=== PATIENT | male | born 1965 | race Caucasian/White ===

== ENCOUNTER 2017-09-17 12:58 | Outpatient (CLI) | payer OTHER ==
--- NOTE | 2017-09-17 15:06 | CT ---
CT BRAIN WITHOUT CONTRAST: Date: 09/17/17 HISTORY: Headache associated with sexual activity. FINDINGS: No evidence of infarct, hemorrhage, midline shift, or abnormal extra-axial fluid collections are seen . The ventricular size is normal and the basilar cisterns are patent. The bony calvarium is intact. T he visualized paranasal sinuses and mastoid air cells are well aerated. IMPRESSION: No CT evidence of acute intracranial process. POS: [facility]
== END 2017-09-17 12:59 | disposition home or self-care (01) ==
LOC: SCSCT 12:58
PROVIDERS: ATTEND Family Medicine
DX: G44.82 Headache associated with sexual activity (principal)
CPT/HCPCS: 70450

== ENCOUNTER 2018-03-10 08:44 | Outpatient (CLI) | payer OTHER ==
--- NOTE | 2018-03-10 09:46 | RAD ---
BARIUM SWALLOW: History: Dysphasia. FINDINGS: The patient ingested barium and crystals without difficulty. The esophageal mucosa and motility were normal. On some of the images there is suggestion of some slight narrowing to the distal esophagus at the GE junction. However, a barium tablet passed without difficulty. No hiatal hernia or reflux. IMPRESSION: Unremarkable barium swallow. Suggestion of some slight narrowing at the GE junction but a barium tabl et passed through this area without difficulty. POS: [facility]
== END 2018-03-10 08:45 | disposition home or self-care (01) ==
LOC: RAD 08:44
PROVIDERS: ATTEND Family Medicine
DX: R13.10 Dysphagia, unspecified (principal)
CPT/HCPCS: 74220

== ENCOUNTER 2018-04-20 13:40 | Outpatient (CLI) | payer OTHER ==
[~2018-04-20 13:40] MED LIST: Iopamidol 370 76% 100 ML VIAL ONE
--- NOTE | 2018-04-20 16:22 | CT ---
CT CHEST WITH CONTRAST 04/20/18 Multiple axial tomograms obtained through the chest with IV enhancement. INDICATIONS: Dysphagia. FINDINGS: The lung albarran are clear and well aerated. The mediastinum is unremarkable. No adenopathy. Esophagus appears unremarkable by CT. Images through upper abdomen appear unremarkable. IMPRESSION: Unremarkable CT chest. POS: [facility]
== END 2018-04-20 13:41 | disposition home or self-care (01) ==
LOC: SCSCT 13:40
PROVIDERS: ATTEND Internal Medicine Gastroenterology
DX: R13.10 Dysphagia, unspecified (principal); K22.2 Esophageal obstruction
CPT/HCPCS: 71260

== ENCOUNTER 2018-05-04 10:17 | Inpatient (IN) | payer OTHER ==
[2018-05-04 10:45] LABS: #Basophils 0.1 thou/uL (0.0-0.2); #Eosinphils 0.2 thou/uL (0.0-0.7); #Lymphocytes 2.2 thou/uL (1.20-3.40); #Monocytes 0.4 thou/uL (0.11-0.59); #Neutrophils 3.2 thou/uL (1.40-6.50); %Basophils 0.8 % (0.0-1.0); %Eosinophils 3.4 % (0.0-10.0); %Lymphocytes 36.2 % (21.0-51.0); %Monocytes 7.2 % (0.0-10.0); %Neutrophils 52.4 % (42.0-75.0); Hemoglobin 15.3 g/dL (14.0-18.0); Mean Corpuscular HGB CONC 34.1 g/dL (32.0-36.0); Mean Corpuscular Hemoglobin 31.7 pg (27.0-31.0); Mean Corpuscular Volume 92.9 fL (78.0-98.0); Mean Platelet Volume 7.5 fL (7.4-10.4); Platelet Count 152 thou/uL (130-400); RBC Distribution Width 12.1 % (11.5-14.5); Red Blood Cell (RBC) Count 4.84 mill/uL (4.70-6.10)
[2018-05-04 11:09] LABS: ALT (SGPT) 37 U/L (8-55); AST (SGOT) 31 U/L (5-34); Albumin 4.7 g/dL (3.5-5.0); Alkaline Phosphatase 72 U/L (40-150); Anion Gap 15 mmol/L (10-20); BUN (Urea Nitrogen) 17 mg/dL (8.4-25.7); Bilirubin, Total 0.9 mg/dL (0.2-1.2); CK (CPK) 163 U/L (30-200); Calc. Creatinine Clearance 0 mL/min (70-130); Calcium 9.8 mg/dL (7.8-10.44); Carbon Dioxide 26 mmol/L (22-29); Chloride 103 mmol/L (98-107); Estimated GFR-MDRD 74; Globulin 2.6 g/dL (2.4-3.5); Glucose 132 mg/dL (70-105); Lipase 56 U/L (8-78); Potassium 3.8 mmol/L (3.5-5.1); Protein, Total 7.3 g/dL (6.0-8.3); Sodium 140 mmol/L (136-145)
[2018-05-04 11:13] LABS: Troponin I Less than 0.010 ng/mL (< 0.028)
--- NOTE | 2018-05-04 12:00 | RAD ---
UPRIGHT PORTABLE CHEST 1 VIEW: Date: 05/04/18 HISTORY: 53-year-old male with history of chest pain, with heaviness and tightness, and left arm pain. FINDINGS: Heart size is normal. The lungs are clear. No pneumonia, edema, pleural effusion, or other acute proc ess. IMPRESSION: No acute intrathoracic disease. POS: [facility]
--- NOTE | 2018-05-04 12:22 | CT ---
CT BRAIN: Date: 05/04/18 HISTORY: Patient with headache. Previous episode of head trauma in February 2018. FINDINGS: Noncontrast enhanced CT images of the brain obtained. Images demonstrate a right frontal subdural hem atoma with mixed acute and chronic changes. No evidence of subdural seen on patient's previous old CT . This subdural hematoma appears to compress the right frontal lobe causing midline shift of approxim ately 7.6 mm. No evidence of hydrocephalus seen. IMPRESSION: Moderate to large right frontal subdural hematoma with compression of the adjacent brain and midline shift. Findings discussed with Dr. Kay at 1134 hours on 05/04/18. CODE CR. POS: [facility]
[2018-05-04] MEDS ORDERED: Labetalol HCl 100 MG/20 ML VIAL SLOW IVP PRN (12:23)
[2018-05-04] MEDS ORDERED: Ondansetron PF 4 MG/2 ML Vial IVP PRN (12:23)
[2018-05-04] MEDS ORDERED: Milk Of Magnesia 30 ML UDCUP PO PRN (12:23)
[2018-05-04] MEDS ORDERED: hydrALAZINE 20 MG/ML VIAL SLOW IVP PRN (12:23)
[2018-05-04] MEDS ORDERED: Docusate 100 MG CAP PO PRN (12:23)
[2018-05-04 12:26] LABS: PTT 29.4 SEC (22.9-36.1)
[2018-05-04 15:30] VITALS: BMI 30.5
[2018-05-04] MEDS: Sodium Chloride 0.9% 1,000 ML IV SCH (16:23)
[2018-05-04] MEDS: Simvastatin 20 MG TAB PO SCH (21:18)
[2018-05-04] MEDS: Famotidine/PF 20 mg/2ml Vial SLOW IVP SCH (21:18)
--- NOTE | 2018-05-04 21:37 | HP ---
HISTORY OF PRESENT ILLNESS: Mr. Carmona is a 53-year-old man who presented to the emergency [facility] this morning at [place] for acute onset of left polydermatomal arm numbness that resolved spont aneously while in the department. He had a CT scan performed of his head that revealed a large right -sided subdural hematoma, subacute in nature that was compressive to the right frontal lobe. It tu ures roughly 1.4 cm in greatest depth and also causes 7-8 mm of midline shift. Neurologically, he is in his baseline and does have mild headache. He describes to me a fall 2 months ago at home where toney bowman had a syncopal event and struck his head posteriorly. CT scan performed immediately at that event was negative at that time, but then over the last 3-4 weeks, he started to develop increasing headach es that are abnormal for him. He does have a history of migraines. This is not similar to those in any of the event today where his left arm went numb. This is very likely related to the subdural ble ed. PAST MEDICAL HISTORY: Significant for hypertension and migraines. MEDICATIONS: Ezetimibe and fexofenadine. ALLERGIES: No known drug allergies. PAST SURGICAL HISTORY: Unspecified. PHYSICAL EXAMINATION: GENERAL: The patient is alert and oriented x4. STRENGTH: He has normal upper and bilateral lower extremity strength. SENSORY: Pupils are equal, round, and reactive to light. Extraocular movements are intact. Cervica l range of motion is intact. NECK: Soft and supple. ASSESSMENT: Subdural hematoma. PLAN: At this time, we will admit her to the stroke unit with q.4 hour neuro checks. We will keep h ead of bed elevated to 30 degrees. I discussed with him and his at bedside recommendation of putnam rgical decompression and evacuation of this hemorrhage or hematoma. Explained in full the procedure, risks, benefits, and alternatives. The patient and his both expressed understanding and would like to proceed. We will plan to make him n.p.o. at midnight and evacuate this tomorrow.
[2018-05-05 04:49] LABS: #Basophils 0.1 thou/uL (0.0-0.2); #Eosinphils 0.3 thou/uL (0.0-0.7); #Lymphocytes 1.7 thou/uL (1.20-3.40); #Monocytes 0.5 thou/uL (0.11-0.59); #Neutrophils 3.9 thou/uL (1.40-6.50); %Basophils 0.9 % (0.0-1.0); %Lymphocytes 26.4 % (21.0-51.0); %Monocytes 7.4 % (0.0-10.0); %Neutrophils 61.3 % (42.0-75.0); Hemoglobin 13.5 g/dL (14.0-18.0); Mean Corpuscular HGB CONC 33.4 g/dL (32.0-36.0); Mean Corpuscular Hemoglobin 31.5 pg (27.0-31.0); Mean Corpuscular Volume 94.2 fL (78.0-98.0); Mean Platelet Volume 7.2 fL (7.4-10.4); Platelet Count 141 thou/uL (130-400); RBC Distribution Width 12.1 % (11.5-14.5); White Blood Cell (WBC) Count 6.4 thou/uL (4.8-10.8)
[2018-05-05 05:13] LABS: Anion Gap 9 mmol/L (10-20); BUN (Urea Nitrogen) 15 mg/dL (8.4-25.7); Calc. Creatinine Clearance 130 mL/min (70-130); Calcium 8.8 mg/dL (7.8-10.44); Carbon Dioxide 27 mmol/L (22-29); Chloride 105 mmol/L (98-107); Estimated GFR-MDRD 84; Glucose 113 mg/dL (70-105); Potassium 3.9 mmol/L (3.5-5.1); Sodium 137 mmol/L (136-145)
[2018-05-05] MEDS ORDERED: Lidocaine 0.5%/Epinephrine 1:200,000 50 ml Vial ONE (07:57)
[2018-05-05] MEDS ORDERED: CEFAZOLIN/Water 2 GM/20 ML SYRINGE ONE (08:02)
[2018-05-05] MEDS ORDERED: Fentanyl 100 MCG/2 ML VIAL ONE ×2 (08:48→10:08)
[2018-05-05] MEDS ORDERED: Bacitracin Zinc Ointment 30 gm TUBE ONE (09:35)
[2018-05-05] MEDS ORDERED: Ondansetron HCl/PF 4 MG/2 ML Vial IVP PRN (09:56)
[2018-05-05] MEDS ORDERED: HYDROmorphone 2 MG/ML VIAL SLOW IVP PRN (09:56)
[2018-05-05] MEDS ORDERED: Promethazine HCl 25 MG/ML VIAL SLOW IVP PRN (09:56)
[2018-05-05] MEDS ORDERED: Promethazine HCl 25 MG/ML VIAL IM PRN (09:56)
--- NOTE | 2018-05-05 11:07 | OP ---
DATE OF PROCEDURE: 05/04/2018 SURGEON: Last Quezada M.D. ADMINISTRATIVE SERVICES COORDINATOR: Ari Morales PA-C. INDICATION: Prevent neurologic decline. DIAGNOSIS: Subacute on chronic subdural hematoma. PROCEDURE PERFORMED: Right frontal betzy hole with evacuation of hematoma. ANESTHESIA: General. TECHNIQUE: The patient was brought into the operating room and placed under general anesthesia. He was placed on the table in supine position. A linear incision was placed over the right frontal bone . The area was infiltrated with Marcaine with epinephrine. The area was then prepped and draped. F ollowing an appropriate operative pause, the incision was created. A self-retaining retractor was pl aced. A single betzy hole was placed within the bone. A cruciate incision was then placed within the dura. There was immediate egress of subacute and chronic blood products. This was irrigated away u ntil it cleared. A red rubber tube was then placed in the subdural space and brought out through a s eparate puncture site. A small betzy hole plate was placed over the betzy hole. The wound was again i rrigated. Hemostasis was maintained throughout. The wound was then closed in anatomic layers and a pressure dressing was applied. There were no known procedural complications.
[2018-05-05] MEDS ORDERED: Ketorolac Tromethamine 30 MG/ML VIAL ONE (13:44)
[2018-05-05] MEDS ORDERED: Ondansetron PF 4 MG/2 ML Vial ONE (13:44)
[2018-05-05] MEDS ORDERED: PROPOFOL 200 MG/20 ML VIAL ONE (13:44)
[2018-05-05] MEDS ORDERED: Glycopyrrolate 0.2 MG/ML 5 ML SYRINGE ONE (13:44)
[2018-05-05] MEDS ORDERED: Lidocaine 1% PF 5 ML VIAL ONE (13:44)
[2018-05-05] MEDS ORDERED: Dexamethasone 20 MG/5 ML VIAL ONE (13:44)
[2018-05-05] MEDS ORDERED: ePHEDrine/0.9% NaCl/PF SYRINGE 50 mg/10 ml ONE (13:44)
[2018-05-05] MEDS: Famotidine/PF 20 mg/2ml Vial SLOW IVP SCH ×2 (14:27→20:07)
[2018-05-05] MEDS: Loratadine 10 MG TAB PO SCH (14:27)
[2018-05-05] MEDS: Sodium Chloride 0.9% 1,000 ML IV SCH (14:28)
[2018-05-05] MEDS: CEFAZOLIN/Water 2 GM/20 ML SYRINGE SLOW IVP SCH (15:02)
--- NOTE | 2018-05-05 17:44 | CON ---
DATE OF CONSULTATION: 05/05/2018 SERVICE: Pulmonary Medicine. REASON FOR CONSULTATION: ICU patient. HISTORY OF PRESENT ILLNESS: The patient is a 53-year-old white male with past medical history significant for essentially nothing. He was in his usual state of health until 2 months ago when he fell. He got checked out in the ER and everything was okay. That being said, about 2-3 weeks later, he started having onset of headaches. These grew and became progressively worse. They were typically first thing in the morning and mid afternoon. He was taking aspirin for these headaches. Ultimately, he started having some weird neurologic symptoms. As such, he presented to the Emergency Department, where CT scan confirmed his subdural hematoma. This has just been evacuated and he is being monitored in the ICU. The neurologic discomfort has completely resolved. He currently has a headache, but this is different than the thing that brought him in. PAST MEDICAL HISTORY: 1. Hypertension. 2. Migraine headache. 3. Obstructive sleep apnea. 4. History of subdural hematoma. PAST SURGICAL HISTORY: 1. [place] hole in the right frontal area with evacuation of subdural hematoma. 2. UPPP. 3. Nasal surgeries. ALLERGIES: No known drug allergies. MEDICATIONS: List of his inpatient medications were reviewed. No specific updates were made at this time. FAMILY HISTORY: Noncontributory. SOCIAL HISTORY: Negative for significant alcohol, tobacco, or illicit drug use. He has no exposure to chemicals, asbestos, or tuberculosis. REVIEW OF SYSTEMS: General, head, ears, eyes, nose, throat, cardiovascular, respiratory, GI, , musculoskeletal, neurologic, and skin is negative except as mentioned in the HPI. PHYSICAL EXAMINATION: VITAL SIGNS: Afebrile, pulse 86, blood pressure 121/61, respirations 13, saturation 100% on room air. GENERAL: The patient is awake, alert, in no apparent distress. LUNGS: There is excellent air entry. No prolonged expiratory phase, wheezing, rhonchi, or crackles are present. HEENT: Normocephalic, atraumatic. Sclerae are white. Conjunctivae pink. Oral and nasal mucosa is moist and without lesions. His head is wrapped in gauze. There is a catheter coming from beneath the gauze. It has a serosanguineous fluid in it. HEART: Normal rate, regular. ABDOMEN: Soft, nontender, nondistended. Bowel sounds are positive. MUSCULOSKELETAL: No cyanosis or clubbing. No pitting in the bilateral lower extremities. NEUROLOGIC: Grossly nonfocal. LABORATORY DATA: WBC 6.4, hemoglobin 13.5, platelets 141,000. INR 1.0. Basic metabolic profile and liver function studies are essentially unremarkable. Cardiac enzymes negative x1. IMAGIN. CT of the brain demonstrates right frontal subdural hematoma with compression adjacent to brain and midline shift that measures 8 mm. 2. Chest x-ray demonstrates no acute intrathoracic disease. ASSESSMENT: 1. Subdural hematoma, status post evacuation, postop day 0. 2. Hypertension. 3. Obstructive sleep apnea. DISCUSSION AND PLAN: The patient is doing absolutely wonderful from a neurologic standpoint. He is going to remain in the ICU until the drain is removed. We will do frequent neuro checks on him to make certain he does not decompensate. If he does, stat CT of the head will be done and Neurosurgery will be notified. We will try to keep his blood pressure under control and avoid antiplatelet medications, as well as anticoagulants. CPAP will be interrupted for the time being. 70 minutes have been devoted to this patient in various activities. I personally reviewed all imaging studies and laboratory data noted within this document. For fifty percent of this time, I was interacting with the patient at the bedside or coordinating care with the care team. For the remainder of the time I was immediately available to the patient in the hospital unit. [facility]
[2018-05-05] MEDS: Simvastatin 20 MG TAB PO SCH (20:07)
[2018-05-05] MEDS: Ezetimibe 10 MG TAB PO SCH (20:07)
[2018-05-05] MEDS: Acetaminophen 325 MG TAB PO PRN (20:10)
[2018-05-06] MEDS: CEFAZOLIN/Water 2 GM/20 ML SYRINGE SLOW IVP SCH ×2 (00:58→09:02)
[2018-05-06] MEDS: Famotidine/PF 20 mg/2ml Vial SLOW IVP SCH ×2 (08:47→20:26)
[2018-05-06] MEDS: Loratadine 10 MG TAB PO SCH (08:47)
[2018-05-06] MEDS: Sodium Chloride 0.9% 1,000 ML IV SCH (08:48)
[2018-05-06] MEDS: CEFAZOLIN 2 GM/50 ML-DEXTROSE 50 ML IVPB SCH ×3 (09:01→23:56)
--- NOTE | 2018-05-06 14:26 | PRG ---
DATE OF SERVICE: 05/06/2018 SERVICE: Pulmonary Medicine. INTERVAL HISTORY: The patient is doing well from a mentation standpoint. The pain in his head has i mproved significantly. This is primarily because he had the drain removed today. He denies any curr ent chest pain, nausea, vomiting, fevers or chills. Otherwise, there has been no interval change to his condition. He had no significant overnight events. PHYSICAL EXAMINATION: VITAL SIGNS: Afebrile, pulse 68, blood pressure 135/87, respirations 20, saturation 98% on room air. GENERAL: The patient is awake, alert, in no apparent distress. LUNGS: Excellent air entry. No prolonged expiratory phase, wheezing, rhonchi or crackles. HEART: Normal rate, regular. ABDOMEN: Soft, nontender, nondistended. Bowel sounds are positive. MUSCULOSKELETAL: No cyanosis or clubbing. There is no pitting in the bilateral lower extremities. NEUROLOGIC: Grossly nonfocal. ASSESSMENT: 1. Subdural hematoma, status post evacuation, postoperative day 1. 2. Hypertension. 3. Obstructive sleep apnea. DISCUSSION AND PLAN: The patient is doing fine from a respiratory standpoint. At this point, he is stable for transition out of the ICU to the stroke unit. If the patient remains in this location, I will follow, but at this point, he has no further requirements for inpatient Pulmonary or Critical Ca re opinion and when he lands on the floor, I will sign off. Please call with additional questions or concerns moving forward.
[2018-05-06] MEDS: Ezetimibe 10 MG TAB PO SCH (20:26)
[2018-05-06] MEDS: Simvastatin 20 MG TAB PO SCH (20:26)
--- NOTE | 2018-05-06 22:55 | PRG ---
DATE OF SERVICE: 05/06/2018 TIME OF ENCOUNTER: This morning at . Mr. Carmona is day #1 status post right subdural hematoma evacuation. He has had minimal drainage to theJP drain from his betzy hole site, we will remove the drain today. Neurologically, he is stable un til yesterday, but his pains and numb sensation of the left shoulder and arm, have essentially resol radha. His headache is gone as well. He feels very well. He is yet to be we will change that n ow today, transitioned to the floor and likely discharge tomorrow.
[2018-05-07] MEDS: Acetaminophen 325 MG TAB PO PRN (06:00)
[2018-05-07 07:21] VITALS: BP 124/85; TEMP 97.6
[2018-05-07] MEDS: Famotidine/PF 20 mg/2ml Vial SLOW IVP SCH (08:29)
[2018-05-07] MEDS: Loratadine 10 MG TAB PO SCH (08:29)
[2018-05-07] MEDS: CEFAZOLIN 2 GM/50 ML-DEXTROSE 50 ML IVPB SCH (08:30)
--- NOTE | 2018-05-07 08:43 | PRG ---
DATE OF SERVICE: 05/07/2018 Mr. Carmona is now 2 days status post betzy hole drainage of a subdural hematoma. Neurologically, he i s at baseline. He reports minimal to no pain. He has been ambulating and tolerating an oral diet. The plan will be to discharge him home today with follow up in 2 weeks.
--- NOTE | 2018-05-07 16:06 | DIS ---
DATE OF ADMISSION: 05/04/2018 DATE OF DISCHARGE: 05/07/2018 Mr. Carmona is a 53-year-old male admitted to [facility] on 05/04/2018 with subsequent discha rge on 05/07/2018. ADMISSION DIAGNOSIS: Fall with subdural hematoma. DISCHARGE DIAGNOSES: Fall with subdural hematoma as well as status post subdural hematoma evacuation betzy hole. HOSPITAL COURSE: Mr. Carmona was admitted for right-sided compressive subdural hematoma of subacute o n chronic nature causing left-sided arm symptoms and headache. This was evacuated by betzy hole drain age on 05/06. He stayed one night in the ICU and then the day on the floor and tolerated this well w ith no complication. He was discharged home with anticipated followup in 2 weeks.
--- NOTE | 2018-05-08 12:16 | EKG ---
Test Reason : CP Blood Pressure : / mmHG Vent. Rate : 059 BPM Atrial Rate : 059 BPM P-R Int : 130 ms QRS Dur : 092 ms QT Int : 444 ms P-R-T Axes : 065 043 022 degrees QTc Int : 439 ms Sinus bradycardia Nonspecific ST abnormality Abnormal ECG Confirmed by MAHAD CRAWFORD ([id number]), index editor LUPE WHITT ([id number] on 05/08/2018 12:16:31 PM Referred By: Confirmed By:MAHAD CRAWFORD
== END 2018-05-07 10:45 | disposition home or self-care (01) | DRG 27 ==
LOC: ERS 10:17 → ERHOLD 12:09 → 2SE 15:06 → CCU 05-05 09:55 → SJJU 05-06 16:30
PROVIDERS: ADMIT Neurological Surgery; ATTEND Neurological Surgery
PROC: 009400Z Drainage of Intracranial Subdural Space with Drainage Device, Open Approach (ICD-10-PCS; principal; 2018-05-04)
DX: S06.5X9A Traumatic subdural hemorrhage with loss of consciousness of unspecified duration, initial encounter (principal); I10 Essential (primary) hypertension; G43.909 Migraine, unspecified, not intractable, without status migrainosus; G47.33 Obstructive sleep apnea (adult) (pediatric); W19.XXXA Unspecified fall, initial encounter; E78.5 Hyperlipidemia, unspecified
CPT/HCPCS: 36415; 70450; 71045; 80048; 80053; 82553; 83690; 84484; 85025; 85610; 85730; 93005; 94002; C1713; G8978-GP-CI; G8979-GP-CI; G8980-GP-CI; J0131; J1100; J1885; J2001; J2270; J2405; J2704; J3010; S0028

== ENCOUNTER 2018-05-28 08:57 | Outpatient (CLI) | payer OTHER ==
--- NOTE | 2018-05-28 11:21 | RAD ---
ESOPHAGRAM: HISTORY: Esophageal obstruction. FINDINGS: Grape Pruner radiograph is unremarkable. Spot and overhead images are obtained. The proximal and mid esoph freddie are unremarkable. In the distal esophagus, there is irregularity in the distal esophageal mucos a, with less than optimum stripping; however, this, for the most part, does not appear to be resultin g in high-grade stenosis. At the distal-most aspect of the thoracic esophagus, just above the gastro esophageal junction, there appears to be repeated presence of a ring-like area of decreased expansion of the esophagus, which may represent esophageal spasm or persistent ring-like membranous obstructio n. The barium tablet does hold up in this area for a few seconds but does pass into the stomach. IMPRESSION: Distal esophageal mucosal irregularity and distal aspect web-like distal esophageal density with func tional obstruction. POS: [facility]
== END 2018-05-28 08:58 | disposition home or self-care (01) ==
LOC: RAD 08:57
PROVIDERS: ATTEND Internal Medicine Gastroenterology
DX: K22.2 Esophageal obstruction (principal); R13.19 Other dysphagia; K22.9 Disease of esophagus, unspecified
CPT/HCPCS: 74220

== ENCOUNTER 2018-06-08 10:03 | Outpatient (CLI) | payer OTHER ==
--- NOTE | 2018-06-08 16:17 | CT ---
CT OF THE HEAD NONCONTRAST: 05/14 01/27 INDICATION: Subdural hematoma, followup. Reference made to 05/04/18. FINDINGS: The previous mixed density extra-axial collection overlying the right convexity has improved, without a significant residua remaining. There is no mass effect, midline shift or ventriculomegaly. Promine nt opacification of the partially visualized right maxillary sinus is seen. There is a bur hole of th e right frontal bone, laterally. IMPRESSION: Interval evacuation of prior extra-axial hemorrhage with no significant residua remaining. POS: [facility]
== END 2018-06-08 10:04 | disposition home or self-care (01) ==
LOC: SCSCT 10:03
PROVIDERS: ATTEND Neurological Surgery
DX: S06.5X0A Traumatic subdural hemorrhage without loss of consciousness, initial encounter (principal)
CPT/HCPCS: 70450

== ENCOUNTER 2022-01-17 15:25 | Outpatient (CLI) | payer BC | END 2022-01-17 15:26 | disposition home or self-care (01) | LOC: BICRAD 15:25 | PROVIDERS: ATTEND Family Medicine | DX: M79.672 Pain in left foot (principal); M19.072 Primary osteoarthritis, left ankle and foot ==

== ENCOUNTER 2023-11-12 22:33 | Inpatient (IN) | payer OTHER ==
[2023-11-12 23:56] LABS: #Basophils 0.07 10x3/uL (0.0-0.2); %Basophils 0.6 % (0.0-1.0); %Eosinophils 4.1 % (0.0-10.0); %Monocytes 7.6 % (0.0-10.0); %Neutrophils 66.1 % (42.0-75.0); Hematocrit 44.8 % (42.0-52.0); Hemoglobin 15.9 g/dL (14.0-18.0); Mean Corpuscular HGB CONC 35.5 g/dL (32.0-36.0); Mean Corpuscular Hemoglobin 32.3 pg (27.0-31.0); Mean Corpuscular Volume 91.1 fL (78.0-98.0); Mean Platelet Volume 9.8 fL (7.4-10.4); Platelet Count 176 10x3/uL (130-400); RBC Distribution Width 12.9 % (11.5-14.5); Red Blood Cell (RBC) Count 4.92 mill/uL (4.70-6.10)
[2023-11-13 00:50] LABS: Globulin 3.2 g/dL (2.4-3.5)
[2023-11-13 00:55] LABS: ALT (SGPT) 30 U/L (8-55); AST (SGOT) 19 U/L (5-34); Albumin 3.8 g/dL (3.5-5.0); Alkaline Phosphatase 81 U/L (40-110); Anion Gap 14 mmol/L (10-20); BUN (Urea Nitrogen) 19 mg/dL (8.4-25.7); Bilirubin, Total 0.7 mg/dL (0.2-1.2); Calc. Creatinine Clearance 0 mL/min (70-130); Calcium 9.5 mg/dL (7.8-10.44); Carbon Dioxide 24 mmol/L (22-29); Chloride 106 mmol/L (98-107); Estimated GFR 99; Glucose 105 mg/dL (70-105); Lipase 59 U/L (8-78); Sodium 140 mmol/L (136-145)
[2023-11-13 01:00] LABS: Troponin I Less than 0.010 ng/mL (< 0.028)
[2023-11-13] MEDS ORDERED: Nitroglycerin 2% Ointment 1 INCH/1 GM Packet ONE (01:36)
[2023-11-13] MEDS ORDERED: Aspirin Chewable 81 MG TAB ONE (01:36)
[2023-11-13] MEDS ORDERED: Ondansetron PF 4 MG/2 ML Vial IVP PRN ×2 (02:15→02:37)
[2023-11-13] MEDS ORDERED: Ondansetron ODT 4 MG TAB SL PRN (02:15)
[2023-11-13] MEDS ORDERED: Acetaminophen 325 MG TAB PO PRN (02:15)
[2023-11-13] MEDS ORDERED: Ondansetron ODT 4 MG TAB PO PRN (02:37)
[2023-11-13] MEDS ORDERED: Acetaminophen 650 MG Suppository PR PRN (02:37)
[2023-11-13 04:03] VITALS: BMI 31.1
[2023-11-13 04:10] LABS: Troponin I Less than 0.010 ng/mL (< 0.028)
[2023-11-13 04:12] LABS: Anion Gap 12 mmol/L (10-20); BUN (Urea Nitrogen) 18 mg/dL (8.4-25.7); Calc. Creatinine Clearance 141 mL/min (70-130); Calcium 9.5 mg/dL (7.8-10.44); Carbon Dioxide 23 mmol/L (22-29); Chloride 107 mmol/L (98-107); Estimated GFR 101; Glucose 111 mg/dL (70-105); Potassium 4.4 mmol/L (3.5-5.1); Sodium 138 mmol/L (136-145)
[2023-11-13] MEDS: Lidocaine 2% Viscous Solution 10 ML, Aluminum & Magnesium Hydroxide 30 ML SSW SCH (05:13)
[2023-11-13 06:28] LABS: Troponin I Less than 0.010 ng/mL (< 0.028)
[2023-11-13] MEDS: Famotidine 20 MG TAB PO SCH (09:12)
[2023-11-13] MEDS: Famotidine/PF 20 mg/2ml Vial SLOW IVP SCH (09:12)
[2023-11-13 11:48] LABS: Magnesium 2.4 mg/dL (1.6-2.6)
[2023-11-13] MEDS ORDERED: Communication Order-Pharmacy FS SCH (12:00)
[2023-11-13] MEDS ORDERED: Heparin 10,000 UNITS/ 10 ML VIAL ONE (12:14)
[2023-11-13] MEDS ORDERED: Verapamil 5 MG/2 ML VIAL ONE (12:14)
[2023-11-13] MEDS ORDERED: Nitroglycerin 50 MG/250 ML BOT 250 ML ONE (12:15)
[2023-11-13] MEDS: Sodium Chloride 0.9% 1,000 ML IV SCH (12:16)
[2023-11-13] MEDS: Pantoprazole 40 MG VIAL IVP SCH ×2 (12:21→20:39)
[2023-11-13] MEDS ORDERED: fentaNYL 50 mcg/mL 1 mL Vial ONE ×2 (12:58→13:33)
[2023-11-13] MEDS ORDERED: Midazolam HCl 2 mg/2 ml Vial ONE ×2 (12:58→13:34)
[2023-11-13] MEDS ORDERED: Iopamidol 370 76% 100 ML VIAL ONE (13:14)
[2023-11-13] MEDS ORDERED: Adenosine 90 mg (30 mL) VIAL ONE (13:24)
[2023-11-13] MEDS ORDERED: TICAGRELOR 90 MG TABLET ONE (13:43)
[2023-11-13] MEDS ORDERED: Morphine 2 MG/ML VIAL SLOW IVP PRN (14:48)
[2023-11-13] MEDS: Rosuvastatin 10 MG TAB PO SCH (20:38)
[2023-11-13] MEDS: TICAGRELOR 90 MG TABLET PO SCH (20:39)
[2023-11-14 03:59] LABS: #Basophils 0.06 10x3/uL (0.0-0.2); %Basophils 0.5 % (0.0-1.0); %Eosinophils 3.6 % (0.0-10.0); %Monocytes 8.7 % (0.0-10.0); %Neutrophils 68.4 % (42.0-75.0); Hematocrit 44.1 % (42.0-52.0); Hemoglobin 14.8 g/dL (14.0-18.0); Mean Corpuscular HGB CONC 33.6 g/dL (32.0-36.0); Mean Corpuscular Hemoglobin 31.2 pg (27.0-31.0); Mean Platelet Volume 9.6 fL (7.4-10.4); Platelet Count 167 10x3/uL (130-400); Red Blood Cell (RBC) Count 4.74 mill/uL (4.70-6.10)
[2023-11-14 04:33] LABS: ALT (SGPT) 25 U/L (8-55); AST (SGOT) 17 U/L (5-34); Albumin 3.3 g/dL (3.5-5.0); Alkaline Phosphatase 76 U/L (40-110); Anion Gap 13 mmol/L (10-20); BUN (Urea Nitrogen) 13 mg/dL (8.4-25.7); Bilirubin, Total 0.6 mg/dL (0.2-1.2); Calc. Creatinine Clearance 143 mL/min (70-130); Calcium 8.7 mg/dL (7.8-10.44); Carbon Dioxide 21 mmol/L (22-29); Chloride 109 mmol/L (98-107); Estimated GFR 101; Glucose 116 mg/dL (70-105); Potassium 4.4 mmol/L (3.5-5.1); Protein, Total 6.3 g/dL (6.0-8.3); Sodium 139 mmol/L (136-145)
[2023-11-14] MEDS: Aspirin Chewable 81 MG TAB PO SCH (08:24)
[2023-11-14] MEDS: Enoxaparin 40 MG (0.4 mL) SYRINGE SC SCH (12:45)
[2023-11-15 06:13] LABS: #Basophils 0.04 10x3/uL (0.0-0.2); %Basophils 0.5 % (0.0-1.0); %Eosinophils 3.2 % (0.0-10.0); %Lymphocytes 21.9 % (21.0-51.0); %Monocytes 8.2 % (0.0-10.0); %Neutrophils 65.6 % (42.0-75.0); Hematocrit 42.7 % (42.0-52.0); Hemoglobin 14.4 g/dL (14.0-18.0); Mean Corpuscular HGB CONC 33.7 g/dL (32.0-36.0); Mean Corpuscular Hemoglobin 31.5 pg (27.0-31.0); Mean Corpuscular Volume 93.4 fL (78.0-98.0); Mean Platelet Volume 9.7 fL (7.4-10.4); Platelet Count 156 10x3/uL (130-400); RBC Distribution Width 12.8 % (11.5-14.5); Red Blood Cell (RBC) Count 4.57 mill/uL (4.70-6.10)
[2023-11-15 06:43] LABS: Globulin 2.9 g/dL (2.4-3.5)
[2023-11-15 06:47] LABS: ALT (SGPT) 24 U/L (8-55); AST (SGOT) 16 U/L (5-34); Albumin 3.2 g/dL (3.5-5.0); Alkaline Phosphatase 72 U/L (40-110); Anion Gap 14 mmol/L (10-20); BUN (Urea Nitrogen) 13 mg/dL (8.4-25.7); Bilirubin, Total 0.6 mg/dL (0.2-1.2); Calc. Creatinine Clearance 158 mL/min (70-130); Calcium 8.7 mg/dL (7.8-10.44); Carbon Dioxide 20 mmol/L (22-29); Chloride 110 mmol/L (98-107); Estimated GFR 104; Glucose 108 mg/dL (70-105); Potassium 4.2 mmol/L (3.5-5.1); Protein, Total 6.1 g/dL (6.0-8.3); Sodium 140 mmol/L (136-145)
[2023-11-15] MEDS: Enoxaparin 40 MG (0.4 mL) SYRINGE SC SCH (09:04)
[2023-11-15] MEDS: Valsartan 80 MG TAB PO SCH (09:11)
[2023-11-16 06:02] LABS: #Basophils 0.05 10x3/uL (0.0-0.2); %Basophils 0.5 % (0.0-1.0); %Eosinophils 4.2 % (0.0-10.0); %Monocytes 8.5 % (0.0-10.0); %Neutrophils 64.3 % (42.0-75.0); Hematocrit 42.7 % (42.0-52.0); Hemoglobin 14.1 g/dL (14.0-18.0); Mean Corpuscular Hemoglobin 30.7 pg (27.0-31.0); Mean Corpuscular Volume 92.8 fL (78.0-98.0); Mean Platelet Volume 9.7 fL (7.4-10.4); Platelet Count 154 10x3/uL (130-400); RBC Distribution Width 12.6 % (11.5-14.5)
[2023-11-16 06:14] LABS: Anion Gap 15 mmol/L (10-20); BUN (Urea Nitrogen) 15 mg/dL (8.4-25.7); Calc. Creatinine Clearance 145 mL/min (70-130); Calcium 8.9 mg/dL (7.8-10.44); Carbon Dioxide 20 mmol/L (22-29); Chloride 110 mmol/L (98-107); Estimated GFR 102; Glucose 109 mg/dL (70-105); Potassium 4.6 mmol/L (3.5-5.1); Sodium 140 mmol/L (136-145)
[2023-11-16] MEDS: Acetaminophen 325 MG TAB PO SCH (09:46)
[2023-11-16] MEDS ORDERED: fentaNYL 50 mcg/mL 1 mL Vial ONE ×4 (12:22→16:33)
[2023-11-16] MEDS ORDERED: Lidocaine 1% (PF) 30 ML VIAL ONE ×2 (14:19→15:17)
[2023-11-16] MEDS ORDERED: CEFAZOLIN 2 GM VIAL ONE (14:19)
[2023-11-16] MEDS ORDERED: Gentamicin 80 MG/2 ML VIAL ONE (14:19)
[2023-11-16] MEDS ORDERED: Midazolam HCl 2 mg/2 ml Vial ONE (15:17)
[2023-11-16] MEDS ORDERED: Acetaminophen/Codeine 30-300mg Tablet PO PRN (16:57)
[2023-11-16] MEDS ORDERED: Acetaminophen 325 MG TAB PO PRN (16:57)
[2023-11-16] MEDS: HYDROcodone/Acetaminophen 5/325 mg Tablet PO PRN (17:54)
[2023-11-16] MEDS: Cephalexin 250 MG CAP PO SCH (20:17)
[2023-11-17] MEDS ORDERED: Lidocaine 1% PF 5 ML VIAL ONE (11:12)
[2023-11-17] MEDS ORDERED: PROPOFOL 20 ML ONE ×3 (11:12→11:25)
[2023-11-17] MEDS ORDERED: CEFAZOLIN 1 GM VIAL ONE (11:17)
[2023-11-17] MEDS ORDERED: fentaNYL 50 mcg/mL 1 mL Vial ONE (11:24)
[2023-11-17 13:16] VITALS: BP 151/106; TEMP 98.2
[2023-11-18] MEDS ORDERED: Pantoprazole DR 40 MG TAB PO SCH (09:00)
== END 2023-11-17 14:20 | disposition home or self-care (01) | DRG 243 ==
LOC: ERS 22:33 → 2SW 11-13 02:02 → OBSVTOIN 11-13 15:50 → IMCU/EMU 11-14 11:59
PROVIDERS: ADMIT Student in an Organized Health Care Education/Training Program; ATTEND Internal Medicine
PROC: 027035Z Dilation of Coronary Artery, One Artery with Two Drug-eluting Intraluminal Devices, Percutaneous Approach (ICD-10-PCS; 2023-11-13)
PROC: 4A023N7 Measurement of Cardiac Sampling and Pressure, Left Heart, Percutaneous Approach (ICD-10-PCS; 2023-11-13)
PROC: B2111ZZ Fluoroscopy of Multiple Coronary Arteries using Low Osmolar Contrast (ICD-10-PCS; 2023-11-13)
PROC: 0JH606Z Insertion of Pacemaker, Dual Chamber into Chest Subcutaneous Tissue and Fascia, Open Approach (ICD-10-PCS; principal; 2023-11-16)
PROC: 02H63JZ Insertion of Pacemaker Lead into Right Atrium, Percutaneous Approach (ICD-10-PCS; 2023-11-16)
PROC: 02HK3JZ Insertion of Pacemaker Lead into Right Ventricle, Percutaneous Approach (ICD-10-PCS; 2023-11-16)
PROC: 0D738ZZ Dilation of Lower Esophagus, Via Natural or Artificial Opening Endoscopic (ICD-10-PCS; 2023-11-17)
DX: I49.5 Sick sinus syndrome (principal); D62 Acute posthemorrhagic anemia; I44.2 Atrioventricular block, complete; I25.10 Atherosclerotic heart disease of native coronary artery without angina pectoris; E88.09 Other disorders of plasma-protein metabolism, not elsewhere classified; R13.10 Dysphagia, unspecified; Z88.1 Allergy status to other antibiotic agents; E78.5 Hyperlipidemia, unspecified; K21.9 Gastro-esophageal reflux disease without esophagitis; Z79.899 Other long term (current) drug therapy
CPT/HCPCS: 33208; 36415; 71045; 76700; 80048; 80053; 83690; 83735; 84443; 84484; 85025; 85347; 92928; 93005; 93010; 93306; 93458; 93798; 93799; 94660; 94760; 96374; 96375; 97139; 99152; 99153; C1769; C1785; C1874; C1887; C1894; C1898; C9113; C9600; G0378; J0153; J0690; J1580; J1644; J1650; J2001; J2250; J2704; J3010; J7050; Q9967; S0028